=== PATIENT | female | born 1955 | race Two or more races ===

== ENCOUNTER → 2021-04-19 | Outpatient (CLI) | payer OTHER ==
[2015-08-26 20:15] VITALS: BP 140/69
--- NOTE | 2021-04-19 12:23 | RAD ---
EXAM: Cervical spine, 4 views; thoracic spine, 3 views. HISTORY: Pain. COMPARISON: None. FINDINGS: Cervical spine: 4 views of the cervical spine are obtained. There is minimal retrolisthesis of C5 on C6. There is degenerative endplate remodeling and slight disc space narrowing at C5-C6 and C6-C7. The re is suspected bone demineralization. There is facet arthropathy at multiple levels. There is no fra cture. Thoracic spine: 3 views of the thoracic spine are obtained. There is minimal thoracic dextrocurvature . There is no significant listhesis. There is no fracture. There is suspected bone demineralization. IMPRESSION: 1. Multilevel change at the lower cervical levels. 2. No acute osseous finding. Electronically signed by: Tamra Combs MD (04/19/2021 12:20 PM) [id number]
== END ==
LOC: RAD 10:49
PROVIDERS: ATTEND Family Medicine
DX: M47.812 Spondylosis without myelopathy or radiculopathy, cervical region (principal); M48.02 Spinal stenosis, cervical region; M43.12 Spondylolisthesis, cervical region; M43.8X4 Other specified deforming dorsopathies, thoracic region
CPT/HCPCS: 72040; 72072